=== PATIENT | male | born 1995 | race Caucasian/White ===

== ENCOUNTER 2017-08-13 12:25 | Emergency (ER) | payer SELFPAY ==
[~2017-08-13] VITALS: Ht 180.3 cm; Wt 104.0 kg
[2017-08-13] MEDS ORDERED: IBUPROFEN 600MG TABLET PO ONE (14:30)
[2017-08-13 15:55] VITALS: BP 122/76
== END 2017-08-13 16:09 | disposition home or self-care (01) ==
LOC: ER 13:42
DX: S62.396A Other fracture of fifth metacarpal bone, right hand, initial encounter for closed fracture (principal); W22.01XA Walked into wall, initial encounter; Y93.89 Activity, other specified; Y92.89 Other specified places as the place of occurrence of the external cause; Y99.8 Other external cause status
CPT/HCPCS: 29125; 73110; 73130; 99284